=== PATIENT | male | born 1995 ===

== ENCOUNTER 2018-03-28 12:47 | Emergency (ER) | payer OTHER ==
--- NOTE | 2018-03-28 12:50 | PDOC ---
History of Present Illness - General Chief Complaint: Redness To Affected Area Stated Complaint: LEG REDNESS Time Seen by Provider: 03/28/18 12:49 Past History - Past Medical History Allergies/Adverse Reactions: Allergies Allergy/AdvReac Type Severity Reaction Status Date / Time No Known Allergies Allergy Verified 03/28/18 12:49 Home Medications: Ambulatory Orders NK [No Known Home Medication] 03/28/18 COPD: No - Suicide/Smoking/Psychosocial Hx Smoking History: Never smoked Have you smoked in the past 12 months: No Hx Alcohol Use: No *DC/Admit/Observation/Transfer - Discharge Dispostion Condition at time of disposition: Stable - Referrals - Patient Instructions - Post Discharge Activity
[2018-03-28 12:54] VITALS: BP 122/79; PULSE 66; TEMP 97.7; BMI 22.4
[2018-03-28] MEDS ORDERED: CEPHALEXIN MONOHYDRATE 500 MG CAPSULE (UD) PO ONE (13:09)
[2018-03-28] MEDS ORDERED: SULFAMETHOXAZOLE/TRIMETHOPRIM 800MG/160MG D.S. TABLET PO ONE (13:09)
--- NOTE | 2018-03-28 13:09 | PDOC ---
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 Erythema and warmth x 1 week, pt was hopiing it would resolve on its own, but has not. no fevers/chills, no pus drainage. Past History - Past Medical History Allergies/Adverse Reactions: Allergies Allergy/AdvReac Type Severity Reaction Status Date / Time No Known Allergies Allergy Verified 03/28/18 12:49 Home Medications: Ambulatory Orders Cephalexin [Keflex] 500 mg PO TID 7 Days #21 capsule 03/28/18 Sulfamethoxazole/Trimethoprim [Bactrim Ds Tablet] 1 each PO BID 7 Days #14 tablet 03/28/18 COPD: No - Suicide/Smoking/Psychosocial Hx Smoking History: Never smoked Have you smoked in the past 12 months: No Hx Alcohol Use: No Drug/Substance Use Hx: No Substance Use Type: None Review of Systems - Review of Systems All Other Systems: Reviewed and Negative *Physical Exam - Vital Signs Last Vital Signs Temp Pulse Resp BP Pulse Ox 97.7 F 66 18 122/79 100 03/28/18 12:49 03/28/18 12:49 03/28/18 12:49 03/28/18 12:49 03/28/18 12:49 - Physical Exam Comments: 03/28/18 13:05 NAD well appearing RRR CTABL soft NTND RLE w/ extensive scarring and skin irregularities 2/2 grafting, mid medial henderson w/ area of erythema. + mild warmth, no expressible purulence, no fluctuance. gait WNL A&O x 3. Medical Decision Making - Medical Decision Making 03/28/18 13:06 22yoM w/ possible mild cellulitis to scarring and old skin graft on RLE. - keflex, bactrim - f/u w/ PMD this week. *DC/Admit/Observation/Transfer Diagnosis at time of Disposition: Cellulitis - Discharge Dispostion Disposition: HOME Condition at time of disposition: Good Decision to Admit order: No - Prescriptions Prescriptions: Cephalexin [Keflex] 500 mg PO TID 7 Days #21 capsule Sulfamethoxazole/Trimethoprim [Bactrim Ds Tablet] 1 each PO BID 7 Days #14 tablet - Referrals - Patient Instructions Printed Discharge Instructions: DI for Cellulitis -- Adult Additional Instructions: Please follow up with your primary doctor next week. prescriptions have been electronically submitted to your pharmacy. keflex bactrim These are antibiotics, please finish all of the medication and do not skip doses. return to ER for: fever over 100.4, redness streaking up leg towards groin, pus drainage from area. - Post Discharge Activity
== END 2018-03-28 13:12 | disposition home or self-care (01) ==
LOC: FER 12:47
DX: L03.90 Cellulitis, unspecified (principal)
CPT/HCPCS: 99281-25

== ENCOUNTER 2019-01-28 10:59 | Emergency (ER) | payer OTHER ==
[2019-01-28 11:17] VITALS: BP 122/62; PULSE 90; TEMP 98.4; BMI 23.3
[2019-01-28] MEDS ORDERED: SODIUM CHLORIDE 0.9% 1000 ML INFUS.BAG IV ONE (11:21)
[2019-01-28] MEDS ORDERED: ACETAMINOPHEN 1000 MG/100 ML VIAL (NON FORMULARY) IVPB ONE (11:21)
[2019-01-28] MEDS ORDERED: ACETAMINOPHEN INJECTION 100 ML IVPB ONE (11:31)
[2019-01-28 12:14] LABS: BASO % 0.7 % (0-2.0); HEMATOCRIT 52.2 % (35.4-49); HEMOGLOBIN 17.4 GM/dl (11.7-16.9); LYMPH % 8.3 % (8-40); MCH 31.3 pg (25.7-33.7); MCHC 33.3 g/dl (32.0-35.9); MEAN CELL VOLUME 94.2 fl (80-96); MEAN PLT VOLUME 9.4 fl (7.5-11.1); MONO % 5.9 % (3.8-10.2); NEUT % 85.1 % (42.8-82.8); PLATELET COUNT 183 K/MM3 (134-434); RBC 5.55 M/mm3 (4.00-5.60); RDW 11.8 % (11.9-15.9); WHITE BLOOD COUNT 8.6 K/mm3 (4.0-10.8)
[2019-01-28 12:57] LABS: ALBUMIN 3.6 g/dl (3.4-5.0); BILIRUBIN,TOTAL 0.9 mg/dl (0.2-1); CALCIUM 7.9 mg/dl (8.5-10); CREATININE 0.8 mg/dl (0.55-1.3); POTASSIUM 3.9 mmol/L (3.5-5.1); TOT PROT 6.1 g/dl (6.4-8.2)
--- NOTE | 2019-01-28 13:08 | PDOC ---
History of Present Illness - General Chief Complaint: Diarrhea Stated Complaint: DIARRHEA SINCE FRIDAY AFTER EATING OUT ON Time Seen by Provider: 01/28/19 11:11 - History of Present Illness Initial Comments: 01/28/19 12:57 23 years old no past medical history presents to the emergency department several day history of nonbloody nonmucoid diarrhea. No travel no recent antibiotics no recent hospitalizations. Patient has 1 sick friend at home with the same symptoms. Mild headache slight weakness and bodyaches slight nausea but no vomiting. Symptoms are moderate persistent constant no exacerbating or alleviating factors. Past History - Past Medical History Allergies/Adverse Reactions: Allergies Allergy/AdvReac Type Severity Reaction Status Date / Time No Known Allergies Allergy Verified 01/28/19 11:01 Home Medications: Ambulatory Orders NK [No Known Home Medication] 01/28/19 COPD: No Other medical history: DENIES - Suicide/Smoking/Psychosocial Hx Smoking History: Never smoked Have you smoked in the past 12 months: No Information on smoking cessation initiated: No Hx Alcohol Use: No Drug/Substance Use Hx: No Substance Use Type: None Review of Systems - Review of Systems Comments:: 01/28/19 13:00 ROS: A complete review of 10 out of 10 review of systems is taken and is negative apart from what is previously mentioned below and in the HPI. *Physical Exam - Vital Signs Last Vital Signs Temp Pulse Resp BP Pulse Ox 98.4 F 90 14 122/62 100 01/28/19 11:01 01/28/19 11:01 01/28/19 11:01 01/28/19 11:01 01/28/19 11:01 - Physical Exam Comments: 01/28/19 13:00 Vitals: Triage Vital signs reviewed General Appearance: no acute distress, well nourished well developed, Head: Atraumatic, Neck: Supple;No Nucal rigidity Chest Wall: Nontender Cardiac: Regular rate and rhythym, no murmurs, no rubs, no gallops, Lungs: Clear to auscultation bilateral, good air movement bilaterally, Abdomen: Soft, non distended, normal bowel sounds, non tender to palpation Extremities: Full range of motion to all extremities, no cyanosis, clubbing, or edema Skin: Warm and dry, no rashes or lesions, no rash, no petechiae Psych: normal mood, normal affect ED Treatment Course - LABORATORY CBC & Chemistry Diagram: 01/28/19 11:45 01/28/19 11:45 - ADDITIONAL ORDERS Additional order review: Laboratory Results 01/28/19 11:45 Sodium Cancelled Potassium Cancelled Chloride Cancelled Carbon Dioxide Cancelled Anion Gap Cancelled BUN Cancelled Creatinine Cancelled Est GFR (CKD-EPI)AfAm Cancelled Est GFR (CKD-EPI)NonAf Cancelled Random Glucose Cancelled Calcium Cancelled Total Bilirubin Cancelled AST Cancelled ALT Cancelled Alkaline Phosphatase Cancelled Total Protein Cancelled Albumin Cancelled 01/28/19 11:45 RBC 5.55 MCV 94.2 MCHC 33.3 RDW 11.8 L MPV 9.4 Neutrophils % 85.1 H Lymphocytes % 8.3 Monocytes % 5.9 Eosinophils % 0.0 Basophils % 0.7 - Medications Given in the ED: ED Medications Discontinued Medications Generic Name Dose Route Start Last Admin Trade Name Freq PRN Reason Stop Dose Admin Acetaminophen 1,000 mg 01/28/19 11:21 01/28/19 11:52 Ofirmev Injection - IVPB 01/28/19 11:22 1,000 mg ONCE ONE Administration Sodium Chloride 1,000 ml 01/28/19 11:21 01/28/19 11:52 Normal Saline - IV 01/28/19 11:22 1,000 ml ONCE ONE Administration Medical Decision Making - Medical Decision Making 01/28/19 13:01 Well-appearing no apparent distress history examination consistent with viral or foodborne diarrhea. No red flags on patient's history laboratory analysis within normal limits patient feels better after fluids Findings, the need for follow-up and strict return instructions discussed with patient. *DC/Admit/Observation/Transfer Diagnosis at time of Disposition: Diarrhea Qualifiers: Diarrhea type: unspecified type Qualified Code(s): R19.7 - Diarrhea, unspecified - Discharge Dispostion Condition at time of disposition: Stable Decision to Admit order: No - Referrals Referrals: [facility] [place] [facility] [place] [Provider Group] - Patient Instructions Printed Discharge Instructions: Diarrhea Additional Instructions: Drink plenty of fluids. Take [id number] probiotic as directed on package. Follow-up with your doctor or the [facility] this week. Return to ED for any severe worsening symptoms or for any concerns. - Post Discharge Activity
== END 2019-01-28 13:33 | disposition home or self-care (01) ==
LOC: FER 10:59
PROC: 3E033NZ Introduction of Analgesics, Hypnotics, Sedatives into Peripheral Vein, Percutaneous Approach (ICD-10-PCS; principal; 2019-01-28)
PROC: 3E0337Z Introduction of Electrolytic and Water Balance Substance into Peripheral Vein, Percutaneous Approach (ICD-10-PCS; 2019-01-28)
DX: R19.7 Diarrhea, unspecified (principal)
CPT/HCPCS: 36415; 80053; 85025; 99282-25; J0131; J7030

== ENCOUNTER 2021-09-08 14:20 | Emergency (ER) | payer BC, OTHER ==
[2021-09-08] MEDS ORDERED: ACETAMINOPHEN 325 MG TABLET (FP) PO ONE (14:24)
[2021-09-08 14:32] VITALS: BP 122/66; PULSE 92; TEMP 98.5; BMI 24.3
[2021-09-08] MEDS ORDERED: ACETAMINOPHEN 325 MG TABLET (FP) ONE (15:01)
[2021-09-09 16:07] LABS: SARS-CoV-2 NAA Not Detected (Not Detected)
== END 2021-09-08 15:56 | disposition home or self-care (01) ==
LOC: FER 14:20
DX: R51.9 Headache, unspecified (principal)
CPT/HCPCS: 99283-25; C9803-CS; U0003; U0005